=== PATIENT | male | born 1960 | race Caucasian/White ===

== ENCOUNTER → 2017-09-06 11:59 | Outpatient (CLI) | payer OTHER, SELFPAY ==
--- NOTE | 2017-09-06 12:03 | DI.RAD.S_ITS ---
PROCEDURE: XR HAND LT MIN 3V INDICATIONS: Left hand pain-swelling ecchymosis 4th and 5th MCP joints TECHNIQUE: 3 views of the hand(s) acquired. COMPARISON: None. FINDINGS: Bones: No dislocations. Carpal bones are normally aligned. No suspicious bony lesions. There is a diagonal fracture through the midshaft of the fourth metacarpal bone, mildly displaced and slightly angulated Soft tissues: No suspicious soft tissue calcifications. IMPRESSION: Acute appearing fourth metacarpal midshaft fracture, mildly angulated and moderately displaced. Dictated by: Nilesh Morrison M.D. on 09/06/2017 at 12:44 Approved by: Nilesh Morrison M.D. on 09/06/2017 at 12:44
== END ==
DX: M79.642 Pain in left hand (principal)
CPT/HCPCS: 73130